=== PATIENT | female | born 1985 | race Two or more races ===

== ENCOUNTER 2017-01-11 12:07 | Emergency (ER) | payer OTHER ==
[2017-01-11] MEDS ORDERED: Ketorolac INJ* 60 MG/2 ML VIAL IM ONE (12:26)
[2017-01-11 12:27] VITALS: BP 128/81
--- NOTE | 2017-01-11 13:33 | RAD ---
Indication: Right foot pain. 3 views of the right foot demonstrates no fracture. No other bone or joint abnormality is identified. IMPRESSION: No fracture of the right foot is noted.
--- NOTE | 2017-01-11 13:33 | RAD ---
Indication: Right foot pain. 3 views of the right ankle demonstrates no fracture. Soft tissue swelling is noted. Ankle mortise is intact. IMPRESSION: Soft tissue swelling without evidence of fracture.
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
== END 2017-01-11 14:10 | disposition home or self-care (01) ==
LOC: ED 12:07
DX: S93.401A Sprain of unspecified ligament of right ankle, initial encounter (principal); W22.8XXA Striking against or struck by other objects, initial encounter; Y93.9 Activity, unspecified; Y92.9 Unspecified place or not applicable; Z72.0 Tobacco use
CPT/HCPCS: 99283; J1885

== ENCOUNTER 2019-11-16 18:38 | Emergency (ER) | payer OTHER ==
[2019-11-16] MEDS ORDERED: Tetracaine 0.5% OPTH.SOL 4 ML BTL RIGHT EYE ONE (19:06)
[2019-11-16 20:09] VITALS: BP 126/75
[2019-11-16] MEDS ORDERED: Erythromycin OPTH OINT APPLIC OINT OPHTHALMIC SCH (21:00)
== END 2019-11-16 20:19 | disposition home or self-care (01) ==
LOC: ED 18:38